=== PATIENT | female | born 2000 | race Caucasian/White ===

== ENCOUNTER 2024-07-01 20:51 | Emergency (ER) | payer OTHER ==
[2024-07-01] MEDS ORDERED: Dexamethasone 10 MG/ML VIAL ONE (21:00)
== END 2024-07-01 21:25 | disposition home or self-care (01) ==
LOC: CSHERS 20:51
DX: J02.9 Acute pharyngitis, unspecified (principal)
CPT/HCPCS: 87081; 87430; 96372; 99283; J1100